=== PATIENT | female | born 1945 | race Caucasian/White ===

== ENCOUNTER 2017-12-28 10:41 | Outpatient (CLI) | payer MEDICARE, OTHER | END 2017-12-28 10:42 | disposition home or self-care (01) | LOC: MRI 10:41 → BICMRI 10:42 | PROVIDERS: ATTEND Orthopaedic Surgery Hand Surgery | DX: M47.22 Other spondylosis with radiculopathy, cervical region; M48.02 Spinal stenosis, cervical region | CPT/HCPCS: 72141 ==

== ENCOUNTER 2018-02-01 09:52 | Outpatient (CLI) | payer MEDICARE ==
--- NOTE | 2018-02-01 11:16 | RAD ---
LATERAL RADIOGRAPHIC EVALUATION OF THE CERVICAL SPINE WITH FLEXION AND EXTENSION: IMAGES: Four. COMPARISON: None. INDICATION: Radiculopathy and biomechanical lesion of the cervical spine. FINDINGS: Lateral examination is evaluated up to the C7 vertebral level. The cervicothoracic junction is vikki r seen on the swimmer's lateral projection. There is severe multilevel disk degenerative facet osteoarthritic change. On the neutral lateral pro jection, spinal alignment is within normal limits. With extension, the spinal alignment is within no rmal limits. With flexion, there is slight anterior translation of C3 on C4 and C4 on C5. IMPRESSION: 1. Severe multilevel spondylosis. 2. Anterolisthesis of C3 on C4 and C4 on C5 with flexion only with reduction in neutral and extensio n positions. POS: ESPERANZA
== END 2018-02-01 09:53 | disposition home or self-care (01) ==
LOC: RAD 09:52
PROVIDERS: ATTEND Nurse Practitioner Family
DX: M99.81 Other biomechanical lesions of cervical region (principal); M47.892 Other spondylosis, cervical region; M43.12 Spondylolisthesis, cervical region
CPT/HCPCS: 72040

== ENCOUNTER 2018-07-13 05:44 | Day surgery (SDC) | payer MEDICARE, OTHER ==
[2018-07-12 10:43] VITALS: BMI 33.8
[2018-07-13] MEDS ORDERED: Midazolam HCl 2 mg/2 ml Vial ONE (06:09)
[2018-07-13] MEDS ORDERED: Fentanyl 100 MCG/2 ML VIAL ONE (06:09)
[2018-07-13 06:31] LABS: #Basophils 0.1 thou/uL (0.0-0.2); #Eosinphils 0.4 thou/uL (0.0-0.7); #Lymphocytes 1.9 thou/uL (1.20-3.40); #Monocytes 0.7 thou/uL (0.11-0.59); #Neutrophils 4.9 thou/uL (1.40-6.50); %Basophils 0.7 % (0.0-1.0); %Eosinophils 5.1 % (0.0-10.0); %Lymphocytes 23.6 % (21.0-51.0); %Monocytes 8.6 % (0.0-10.0); Hemoglobin 13.7 g/dL (12.0-16.0); Mean Corpuscular HGB CONC 33.8 g/dL (32.0-36.0); Mean Corpuscular Hemoglobin 30.5 pg (27.0-31.0); Mean Corpuscular Volume 90.2 fL (78.0-98.0); Platelet Count 330 thou/uL (130-400); Red Blood Cell (RBC) Count 4.48 mill/uL (4.20-5.40); White Blood Cell (WBC) Count 7.9 thou/uL (4.8-10.8)
[2018-07-13 06:43] LABS: Anion Gap 12 mmol/L (10-20); BUN (Urea Nitrogen) 19 mg/dL (9.8-20.1); Calc. Creatinine Clearance 104 mL/min (70-130); Calcium 9.3 mg/dL (7.8-10.44); Carbon Dioxide 28 mmol/L (23-31); Chloride 102 mmol/L (98-107); Estimated GFR-MDRD 88; Glucose 110 mg/dL (83-110); Potassium 4.3 mmol/L (3.5-5.1); Sodium 138 mmol/L (136-145)
[2018-07-13] MEDS ORDERED: Bupivacaine PF 0.5% 30 ML VIAL ONE (06:44)
[2018-07-13] MEDS ORDERED: Bacitracin Zinc Ointment 30 gm TUBE ONE (06:44)
[2018-07-13] MEDS ORDERED: Betamet Acet/Betamet Na Ph 30 MG/5 ML VIAL ONE (06:44)
[2018-07-13] MEDS ORDERED: CEFAZOLIN/Water 2 GM/20 ML SYRINGE ONE (07:08)
[2018-07-13] MEDS ORDERED: Ketorolac Tromethamine 30 MG/ML VIAL ONE (08:52)
--- NOTE | 2018-07-13 09:49 | OP ---
DATE OF PROCEDURE: 07/13/2018 SURGEON: Dr. Robbin Redding PREOPERATIVE DIAGNOSIS: Left carpal tunnel syndrome. POSTOPERATIVE DIAGNOSIS: Left carpal tunnel syndrome. FINDINGS: A very tight transverse carpal ligament especially in the proximal one-half with stippling and early allograft formation. PROCEDURE PERFORMED: Left carpal tunnel release. TOURNIQUET TIME: 16 minutes. ESTIMATED BLOOD LOSS: Less than or equal 5 mL. DESCRIPTION OF PROCEDURE: After successful propofol with a 10 mL 3 prep Marcaine 0.5% block, the bennett b was prepped and draped. The patient then had the limb exsanguinated after timeout was done and th e timeout, consent history and physical matched the left side. Tourniquet was inflated to 250 mmHg p ressure. We made a limited carpal tunnel incision of 2.5 cm long beginning 5 mm distal volar wrist f lexion crease. Carried this through skin and subcutaneous tissue until we identified the transcarpal ligament. We made an incision in the middle portion of the ligament from here, dissected distally u sing combination of Ute blade and tenotomy scissors. Same combination was used to release the proximal half until there was no transverse carpal ligament or distal forearm fascia over the median nerve. The median nerve and main branches all intact. Ther e was no flexor tenosynovitis and this included the motor branch which was a type 1 takeoff. We released the tourniquet, obtained hemostasis. I placed 3 mL of Celestone over the nerve, closed t he wound with interrupted 4-0 nylon. A bulky dressing was applied without a splint. The patient lef t the operating room to recovery without complication.
[2018-07-13] MEDS ORDERED: Lidocaine 1% PF 5 ML VIAL ONE (14:27)
[2018-07-13] MEDS ORDERED: PROPOFOL 200 MG/20 ML VIAL ONE (14:27)
== END 2018-07-13 09:25 | disposition home or self-care (01) ==
LOC: SDC 05:44
PROVIDERS: ATTEND Orthopaedic Surgery Hand Surgery
PROC: 01N50ZZ Release Median Nerve, Open Approach (ICD-10-PCS; principal; 2018-07-13)
DX: G56.02 Carpal tunnel syndrome, left upper limb (principal); M48.02 Spinal stenosis, cervical region; M54.12 Radiculopathy, cervical region; M19.042 Primary osteoarthritis, left hand; I10 Essential (primary) hypertension; Z88.5 Allergy status to narcotic agent; Z79.82 Long term (current) use of aspirin; Z79.899 Other long term (current) drug therapy
CPT/HCPCS: 80048; 85025; 96372; 96374; J0702; J1885; J2001; J2250; J2704; J3010; S0020

== ENCOUNTER 2018-11-15 08:07 | Outpatient (CLI) | payer MEDICARE, OTHER | END 2018-11-15 08:08 | disposition home or self-care (01) | LOC: BICMAMMO 08:07 | PROVIDERS: ATTEND Family Medicine | DX: Z12.31 Encounter for screening mammogram for malignant neoplasm of breast (principal); Z80.3 Family history of malignant neoplasm of breast | CPT/HCPCS: 77063; 77067 ==

== ENCOUNTER 2021-01-05 07:42 | Outpatient (CLI) | payer MEDICARE | END 2021-01-05 07:43 | disposition home or self-care (01) | LOC: BICMAMMO 07:42 | PROVIDERS: ATTEND Family Medicine | DX: Z12.31 Encounter for screening mammogram for malignant neoplasm of breast (principal) | CPT/HCPCS: 77063; 77067 ==

== ENCOUNTER 2021-05-28 10:11 | Outpatient (CLI) | payer MEDICARE | END 2021-05-28 10:12 | disposition home or self-care (01) | LOC: BICRAD 10:11 | PROVIDERS: ATTEND Family Medicine | DX: S92.345D Nondisplaced fracture of fourth metatarsal bone, left foot, subsequent encounter for fracture with routine healing (principal); S92.325D Nondisplaced fracture of second metatarsal bone, left foot, subsequent encounter for fracture with routine healing; S92.335D Nondisplaced fracture of third metatarsal bone, left foot, subsequent encounter for fracture with routine healing; S92.355D Nondisplaced fracture of fifth metatarsal bone, left foot, subsequent encounter for fracture with routine healing ==

== ENCOUNTER 2021-06-24 09:27 | Outpatient (CLI) | payer MEDICARE | END 2021-06-24 09:28 | disposition home or self-care (01) | LOC: BICRAD 09:27 | PROVIDERS: ATTEND Family Medicine | DX: S92.345D Nondisplaced fracture of fourth metatarsal bone, left foot, subsequent encounter for fracture with routine healing (principal) ==

== ENCOUNTER 2022-01-21 07:41 | Outpatient (CLI) | payer MEDICARE | END 2022-01-21 07:42 | disposition home or self-care (01) | LOC: BICMAMMO 07:41 | PROVIDERS: ATTEND Family Medicine | DX: Z12.31 Encounter for screening mammogram for malignant neoplasm of breast (principal) | CPT/HCPCS: 77063; 77067 ==

== ENCOUNTER 2022-11-10 14:06 | Outpatient (CLI) | payer MEDICARE ==
[2022-11-10 15:07] LABS: Prothrombin Time 10.4 sec (9.5-12.1)
[2022-11-10 15:12] LABS: Chloride 103 mmol/L (98-107); Potassium 3.9 mmol/L (3.5-5.1); Sodium 139 mmol/L (136-145)
[2022-11-10 15:13] LABS: BUN (Urea Nitrogen) 20 mg/dL (9.8-20.1); Calc. Creatinine Clearance 0 mL/min (70-130); Carbon Dioxide 25 mmol/L (23-31); Estimated GFR 92
[2022-11-10 15:14] LABS: Anion Gap 15 mmol/L (10-20); Calcium 9.2 mg/dL (7.6-10.4); Glucose 100 mg/dL (83-110)
[2022-11-10 15:52] LABS: #Basophils 0.1 10x3/uL (0.0-0.2); #Eosinphils 0.3 10x3/uL (0.0-0.5); #Monocytes 0.7 10x3/uL (0.0-1.1); #Neutrophils 6.5 10x3/uL (1.5-8.4); %Basophils 0.7 % (0.0-2.0); %Eosinophils 3.1 % (0.0-6.0); %Lymphocytes 23.3 % (18.0-47.0); %Monocytes 7.4 % (0.0-10.0); Hemoglobin 13.6 g/dL (12.0-15.5); Mean Corpuscular HGB CONC 32.7 g/dL (32.0-36.0); Mean Corpuscular Hemoglobin 29.1 pg (27.0-33.0); Mean Corpuscular Volume 88.9 fl (81.6-98.3); Mean Platelet Volume 9.1 fl (7.4-10.4); Platelet Count 363 10x3/uL (150-450); RBC Distribution Width 13.1 % (11.5-14.5); Red Blood Cell (RBC) Count 4.68 10x6/uL (3.90-5.03)
== END 2022-11-10 14:07 | disposition home or self-care (01) ==
LOC: LABBT 14:06
PROVIDERS: ATTEND Orthopaedic Surgery
DX: Z01.818 Encounter for other preprocedural examination (principal); M17.12 Unilateral primary osteoarthritis, left knee
CPT/HCPCS: 80048; 85025; 85610; 87081; 93005; 93010

== ENCOUNTER 2022-11-15 06:14 | Observation (INO) | payer MEDICARE ==
[2022-11-14 14:05] VITALS: BMI 31.1
[2022-11-15] MEDS ORDERED: Sodium Chloride 0.9% 100 ML ONE ×2 (06:37→08:16)
[2022-11-15] MEDS ORDERED: Tranexamic Acid 1,000 MG/10 ML VIAL ONE (06:37)
[2022-11-15] MEDS ORDERED: Vancomycin 1 GM/200 ML (FROZEN) BAG ONE (06:37)
[2022-11-15] MEDS ORDERED: diphenhydrAMINE 25 MG CAP PO PRN (06:55)
[2022-11-15] MEDS ORDERED: Fentanyl 100 MCG/2 ML VIAL SLOW IVP PRN (06:55)
[2022-11-15] MEDS ORDERED: Promethazine HCl 25 MG/ML VIAL IM PRN ×2 (06:55→10:03)
[2022-11-15] MEDS ORDERED: Zolpidem Tartrate 5 MG TAB PO PRN (06:55)
[2022-11-15] MEDS ORDERED: Acetaminophen 325 MG TAB PO PRN (06:55)
[2022-11-15] MEDS ORDERED: Ondansetron PF 4 MG/2 ML Vial IVP PRN (06:55)
[2022-11-15] MEDS ORDERED: HYDROcodone/Acetaminophen 10/325 mg Tablet PO PRN ×2 (06:55)
[2022-11-15 07:23] LABS: SARS-CoV-2 NAA Rapid Test Not Detected (NotDetected)
[2022-11-15] MEDS ORDERED: Ondansetron PF 4 MG/2 ML Vial ONE ×2 (07:25→08:29)
[2022-11-15] MEDS ORDERED: fentaNYL PF 100 MCG/2 ML SYRINGE ONE (07:57)
[2022-11-15] MEDS ORDERED: CEFAZOLIN 2 GM VIAL ONE (08:15)
[2022-11-15] MEDS ORDERED: Ropivacaine 0.2% 550 ML 550 ML NERVE BLCK SCH (08:15)
[2022-11-15] MEDS ORDERED: traMADol HCl 50 MG TAB PO PRN ×2 (08:15)
[2022-11-15] MEDS ORDERED: Bupivacaine HCl 0.5%/Epinephrine 1:200,000/PF 30 ml Vial ONE (08:29)
[2022-11-15] MEDS ORDERED: ePHEDrine 50 MG/ML VIAL ONE (08:29)
[2022-11-15] MEDS ORDERED: Dexamethasone 20 MG/5 ML VIAL ONE (08:29)
[2022-11-15] MEDS ORDERED: PROPOFOL 200 MG/20 ML VIAL ONE (08:29)
[2022-11-15] MEDS ORDERED: Lidocaine 1% PF 5 ML VIAL ONE (08:29)
[2022-11-15] MEDS ORDERED: Midazolam HCl 2 mg/2 ml Vial ONE (08:44)
[2022-11-15] MEDS ORDERED: Bupivacaine PF 0.5% 30 ML VIAL ONE ×2 (08:44→09:00)
[2022-11-15] MEDS ORDERED: Fentanyl 100 MCG/2 ML VIAL ONE ×4 (08:44→12:45)
[2022-11-15] MEDS ORDERED: Hydrochlorothiazide 25 MG TAB PO SCH (09:00)
[2022-11-15] MEDS ORDERED: Multivitamin W/ Minerals 1 TAB PO SCH (09:00)
[2022-11-15] MEDS ORDERED: Zinc Sulfate 220 MG CAP PO SCH (09:00)
[2022-11-15] MEDS ORDERED: Valsartan 80 MG TAB PO SCH (09:00)
[2022-11-15] MEDS ORDERED: Ondansetron HCl/PF 4 MG/2 ML Vial IVP PRN (10:03)
[2022-11-15] MEDS: Ketorolac Tromethamine 30 MG/ML VIAL IVP SCH ×2 (14:45→22:16)
[2022-11-15] MEDS: Senokot S 8.6-50 MG TAB PO SCH ×2 (14:46→20:19)
[2022-11-15] MEDS: Aspirin 81 mg Enteric Coated Tablet PO SCH ×2 (14:47→20:20)
[2022-11-15] MEDS: Atenolol 25 MG TAB PO SCH (14:47)
[2022-11-15] MEDS: Furosemide 20 MG TAB PO SCH (14:47)
[2022-11-15] MEDS: Sodium Chloride 0.9% 1,000 ML IV SCH ×2 (14:47→17:19)
[2022-11-15] MEDS: Ferrous Gluconate 324 MG TAB PO SCH ×2 (14:47→20:20)
[2022-11-15] MEDS ORDERED: CEFAZOLIN 2 GM in Sodium Chloride 0.9% 100 ML IVPB SCH ×2 (19:15→22:00)
[2022-11-15] MEDS ORDERED: Sertraline 100 MG TAB PO SCH (21:00)
[2022-11-16] MEDS: Sodium Chloride 0.9% 1,000 ML IV SCH (03:00)
[2022-11-16] MEDS ORDERED: CEFAZOLIN 2 GM in Sodium Chloride 0.9% 100 ML IVPB SCH (04:00)
[2022-11-16] MEDS: Ketorolac Tromethamine 30 MG/ML VIAL IVP SCH (05:00)
[2022-11-16 05:12] VITALS: TEMP 98.2
[2022-11-16 07:13] LABS: Hemoglobin 9.5 g/dL (12.0-16.0); Mean Corpuscular HGB CONC 32.6 g/dL (32.0-36.0); Mean Corpuscular Hemoglobin 30.4 pg (27.0-31.0); Mean Corpuscular Volume 93.3 fl (78.0-98.0); Mean Platelet Volume 7.2 fL (7.4-10.4); Platelet Count 239 10x3/uL (130-400); RBC Distribution Width 12.1 % (11.5-14.5); Red Blood Cell (RBC) Count 3.12 mill/uL (4.20-5.40); White Blood Cell (WBC) Count 11.4 10x3/uL (4.8-10.8)
[2022-11-16 07:59] VITALS: BP 108/68
[2022-11-16] MEDS: Furosemide 20 MG TAB PO SCH (09:54)
[2022-11-16] MEDS: Atenolol 25 MG TAB PO SCH (09:54)
[2022-11-16] MEDS: Aspirin 81 mg Enteric Coated Tablet PO SCH (09:54)
[2022-11-16] MEDS: Senokot S 8.6-50 MG TAB PO SCH (09:54)
[2022-11-16] MEDS: Ferrous Gluconate 324 MG TAB PO SCH (09:54)
== END 2022-11-16 10:45 | disposition home or self-care (01) ==
LOC: SDC 06:14 → SURG A 14:47
PROVIDERS: ADMIT Orthopaedic Surgery; ATTEND Orthopaedic Surgery
PROC: 0SRD0J9 Replacement of Left Knee Joint with Synthetic Substitute, Cemented, Open Approach (ICD-10-PCS; principal; 2022-11-15)
DX: M17.12 Unilateral primary osteoarthritis, left knee (principal); I10 Essential (primary) hypertension; Z79.82 Long term (current) use of aspirin; Z79.899 Other long term (current) drug therapy; Z88.5 Allergy status to narcotic agent; Z20.822 Contact with and (suspected) exposure to COVID-19
CPT/HCPCS: 20985; 27447; 73560; 85027; 96374; 96375; 96376; 97110 ×2; 97116 ×2; 97530; A4306; C1713; C1776; G0378 ×2; J3370; U0002; 36415; J1100; J1885; J2250; J2405; J2704; J2795; J3010; J3490; S0020